=== PATIENT | female | born 1950 | race African-American/Black ===

== ENCOUNTER 2017-02-14 15:43 | Observation (INO) ==
--- NOTE | 2017-02-14 17:21 | CT Report ---
CT brain Indication: Syncope, fall Comparison: None available Technique: Axial CT imaging of the brain is performed without contrast with 3 mm increments. Findings: No evidence of hemorrhage, mass mass effect midline shift or acute infarct seen. The brain parenchyma attenuation and differentiation appears within normal limits. The ventricles and cisterns are normal in caliber. No cranial or skull base abnormality is identified. Impression: No evidence of acute injury demonstrated. This CT exam was performed using one or more the following dose reduction techniques: Automated exposure control, adjustment of the MA and/or KV according to patient size, or use of iterative reconstruction technique. PROCEDURE INTERPRETED AT [facility] DEPARTMENT OF RADIOLOGY Final Report Signed by: Dr. Artem Sorenson
--- NOTE | 2017-02-14 17:24 | CT Report ---
CT lumbar spine wo con Indication: Back pain, falling injury Comparison: None available Technique: Axial CT imaging of the lumbar spine is performed without contrast. Computer reformatting is viewed in the sagittal and coronal planes. Findings: No fracture is seen. There is spondylolisthesis at L4-5 less than 25% vertebral body width. Remaining alignment of the spine is within normal limits. Vertebral body heights are normal. There is loss of disc space and degenerative change of moderate severity L5-S1 moderate at L3-4 and L4-5. No other abnormality is demonstrated. Impression: No evidence of acute injury demonstrated This CT exam was performed using one or more the following dose reduction techniques: Automated exposure control, adjustment of the MA and/or KV according to patient size, or use of iterative reconstruction technique. PROCEDURE INTERPRETED AT [facility] DEPARTMENT OF RADIOLOGY Final Report Signed by: Dr. Artem Sorenson
--- NOTE | 2017-02-14 17:41 | XRay Report ---
XR chest 1V portable Indication: Syncope Comparison: One October 2010 Findings: The heart and mediastinum are normal in size and configuration. The pulmonary vascularity is normal in caliber. No lung infiltrates, effusions, pneumothorax or other abnormality is demonstrated. Impression: Normal chest x-ray PROCEDURE INTERPRETED AT [facility] DEPARTMENT OF RADIOLOGY Final Report Signed by: Dr. Artem Sorenson
--- NOTE | 2017-02-14 17:43 | XRay Report ---
XR hip 2V BI Indication: Hip pain Comparison: None available Findings: No evidence of fracture seen. The alignment of the joints appears normal. Mild bilateral hip degenerative change is present. No soft tissue abnormality is seen. Impression: Mild hip osteoarthrosis. PROCEDURE INTERPRETED AT [facility] DEPARTMENT OF RADIOLOGY Final Report Signed by: Dr. Artem Sorenson
--- NOTE | 2017-02-14 17:44 | XRay Report ---
XR knee 2V BI Indication: Pain, injury Comparison: None available Findings: No evidence of fracture seen. The alignment of the joints appears normal. Moderate to severe bilateral tricompartmental degenerative change is present. No soft tissue abnormality is seen. Impression: No evidence of acute injury demonstrated PROCEDURE INTERPRETED AT [facility] DEPARTMENT OF RADIOLOGY Final Report Signed by: Dr. Artem Sorenson
[2017-02-14 17:47] LABS: Basophils % 0.4 % (0.0-0.8); Eosinophils # 0.2 10*3/uL (0.0-0.87); Eosinophils % 4.1 % (0.00-10.9); Hematocrit 40.5 VOL% (35.7-47.0); Hemoglobin 13.6 GM/DL (12.0-16.0); Immature Granulocytes % 0.4 %; Immature Granulocytes Absolute 0.02 #; Lymphocytes % 36.5 % (21.3-54.2); Mean Corpuscular HGB Conc 33.6 GM/DL (32-36); Mean Corpuscular Hemoglobin 30 PG (27-34); Mean Corpuscular Volume 89.8 FL (87-102); Monocytes # 0.4 10*3/uL (0.11-0.8); Monocytes % 8.1 % (1.7-12.7); Neutrophils # 2.7 10*3/uL (1.4-7.4); Neutrophils % 50.5 % (38.7-73.9); Platelet Count 238 T/CUMM (130-400); Red Blood Count 4.51 MC/CUMM (3.8-5.5); Red Cell Distribution Width 15.7 % (9.3-17.3); White Blood Count 5.4 T/CUMM (4-12)
[2017-02-14 17:51] LABS: Apearance,Urine CLEAR (Clear); Bilirubin,Urine Negative (Negative); Blood, Urine Negative (Negative); Glucose,Urine (UA) Negative (Negative); Ketones,Urine Negative (Negative); Mucus,Urine Occasional /LPF (Occasional); Nitrite,Urine Negative (Negative); Protein,Urine Negative; RBC,Urine <1 /HPF (0-4); Squamous Epithelial Cell,Urine Occasional /HPF (0-10); Urine Color Yellow (Yellow); Urine Specific Gravity 1.026 (1.001-1.035); Urine Urobilinogen < 2.0 EU/DL (0.2-1.0); WBC,Urine 1 /HPF (0-6)
--- NOTE | 2017-02-14 17:56 | EKG Report ---
Stationary ECG Study [facility] ER Test Date: 02/14/2017 5:57:40 PM Pat Name: MELINDA FERNANDEZ Department: Room: Gender: F Taping Supervisor: : 1950 Requested by: Baldomero Shelley Order Number: [id number] Reading MD: CASI DOUGLAS Intervals [place] Rate: 74 P: 58 CA: 134 QRS: 24 QRSD: 108 T: -23 QT: 407 QTc: 434 Interpretive Statements SINUS RHYTHM LOW QRS VOLTAGE IN PRECORDIAL LEADS PROBABLE INFERIOR MYOCARDIAL INFARCTION, OF INDETERMINATE AGE POSSIBLE ANTEROLATERAL MYOCARDIAL INFARCTION, OLD Electronically Signed On 02-16-17 05:13:09 CDT by CASI DOUGLAS [email or web address]
[2017-02-14 17:58] LABS: INR 1.1; PT Patient Result 11.9 SECS; Partial Thromboplastin Time 25.2 SECS (0-40)
--- NOTE | 2017-02-14 18:24 | Emergency Department Note ---
Arrival - Arrival Chief Complaint: Fall Stated Complaint: unable to ambulate; legs buckled; was in walkin ED Nursing Triage Note: Patient was at home attempting to get out of her car from a trip to [employer]. She reports she leaned over her walker, her legs buckled under her, and she fell, and hit the back of her head. She denies a loss of consciousness; she is alert to person, place, time, and situation; but she reports difficulty walking for the past 2-3 weeks. Mode of Arrival: Stretcher Limitations: No Limitations Source: Patient, Old Records Reviewed, RN Notes Reviewed Time Seen by Provider: 02/14/17 16:37 - History of Present Illness HPI Narrative: The patient complains of lower extremity and a fall today while getting out of her car. She says her "legs just gave way." She hit her head but denies any loss of consciousness. She has a history of chronic low back pain and degenerative disease with radiculopathy. She has chronic weakness in her legs and is receiving physical therapy for this. She has had increased difficulty walking for the past 2-3 weeks and states she has been dragging her right leg for 2-3 months. She states her hips, knees and lower legs are hurting her but it is not clear whether there is any acute pain from the fall versus chronic pain. Home Medications: Home Medications Medication Instructions Recorded Confirmed Type Allopurinol 300 mg PO DAILY 02/14/17 02/14/17 History Aspirin EC Tab 81 mg PO DAILY 02/14/17 02/14/17 History Cholecalciferol (Vitamin D3) 2,000 unit PO DAILY 02/14/17 02/14/17 History [Vitamin D3] Gabapentin 300 mg PO DAILY 02/14/17 02/14/17 History Levothyroxine Tab [Synthroid Tab] 100 mcg PO QAM 02/14/17 02/14/17 History Lovastatin 40 mg PO BEDTIME 02/14/17 02/14/17 History Meloxicam 15 mg PO DAILY 02/14/17 02/14/17 History [place]-3S/Dha/Epa/Fish Oil [Fish 1 each PO DAILY 02/14/17 02/14/17 History Oil [place]-3 Softgel] Potassium 99 mg PO DAILY 02/14/17 02/14/17 History Ropinirole HCl 1 mg PO BEDTIME 02/14/17 02/14/17 History amLODIPine [Norvasc] 10 mg PO DAILY 02/14/17 02/14/17 History Review of System - Review of System 12 point system: reviewed and no additional remarkable complaints except as stated - Review of System Constitutional: Absent: fever Head/Ears/Nose/Throat: Absent: nasal drainage, sore throat Respiratory: Absent: cough Cardiovascular: Absent: chest pain Gastrointestinal: Absent: abdominal pain, nausea, vomiting Musculoskeletal: Present: arthralgia, back pain, lower back pain, leg pain. Absent: neck pain Neurological: Absent: headache Medical,Surgical,& Family Hx - Medical History Cardio: History of: Hypertension Endocrine: History of: Dyslipidemia Rheumatology: History of;: Gout, Rheumatoid Arthritis Musculoskeletal: History of: Back/Neck Problems, Degenerative Disk Disease, Herniated Disk - Surgical History Abdominal Surgeries: Surgical HX of: Colonoscopy - Family History Family History: Reports;: Family Diabetes - Social History Smoking Status: Former smoker Frequency of Alcohol Use: None Type of Drug Use: None Exam Physical Examination: GENERAL: Alert. No acute distress. HEENT: Normocephalic and atraumatic. No hematoma noted. There is no nasal drainage. No pharyngeal erythema or exudate. NECK: Normal inspection. Supple. No lymphadenopathy or meningismus. Full range of motion. LUNGS: No respiratory distress. Clear to auscultation bilaterally, no wheezes, rales or rhonchi. HEART: Regular rate and rhythm. ABDOMEN: Soft, nontender and nondistended with normoactive bowel sounds. Pelvis is stable. BACK: Normal inspection. Nontender. Kyphotic. SKIN: Color normal. Warm and dry. EXTREMITIES: Diffuse tenderness from the hips to the feet. Patient will not move her legs much but strength appears to be symmetric. Perhaps minimally weak. She cannot lift them off the bed very far but she says this is due to pain. No swelling, deformity or ecchymosis noted. Sensation intact. NEUROLOGICAL/PSYCHIATRIC: Alert and oriented -3 with normal mood and affect. Cranial nerves normal. No motor or sensory deficit. Vital Signs: Vital Signs Temperature 98.0 F 02/14/17 15:51 Pulse Rate 92 H 02/14/17 15:51 Respiratory Rate 20 02/14/17 15:51 Blood Pressure 124/71 02/14/17 15:51 O2 Sat by Pulse Oximetry 97 02/14/17 15:51 Course Course Narrative: An MRI of lumbar spine report from 2015 shows: Multilevel mild to moderate spinal stenosis related to posterior disc bulging and hypertrophic changes of the posterior elements at multiple levels as well as grade 1 spondylolisthesis at L4-L5. Multilevel neural foraminal narrowing related to posterior lateral disc bulge/protrusion and hypertrophic changes of the posterior elements. This includes severe neuroforaminal narrowing bilaterally at L3-L4 and L4-L5 and on the left at L5-S1. Please refer to the above discussion for additional information regarding the individual levels. - Reevaluation(s) Reevaluation #1: Patient has seen neurosurgery and [facility] and has declined to have surgery for her spinal problems. She has not seen orthopedics for her rather severe arthritis in her knees and hips. Her weakness sounds more like buckling due to arthritis than actual weakness from her spinal problems but regardless the patient continues to say that she cannot walk. She wants to be admitted because she lives by herself and is scared she will fall again. I think she is going need inpatient rehab versus long term placement. I have discussed the patient with the hospitalist service. They will see her and admit for observation and have social media marketing manager see her tomorrow. Time: 20:01 Results - Labs CBC & BMP: 02/14/17 17:39 02/14/17 17:39 Lab Results: I have reviewed the patients labs Labs: Laboratory Tests 02/14/17 02/14/17 02/14/17 17:39 17:39 17:39 INR 1.1 Calcium 10.2 H Total Creatine Kinase 271 H CK-MB (CK-2) 2.5 Troponin I < 0.015 Urine Leukocytes Negative Urine RBC <1 Urine WBC 1 - Impressions EKG shows a normal sinus rhythm at 74 with low QRS voltage in the precordial leads. There are Q waves inferiorly and anterolaterally. CT of the head shows no acute intracranial abnormality. CT of the lumbar spine shows: No fracture is seen. There is spondylolisthesis at L4-5 less than 25% vertebral body width. Remaining alignment of the spine is within normal limits. Vertebral body heights are normal. There is loss of disc space and degenerative change of moderate severity L5-S1 moderate at L3-4 and L4-5. No other abnormality is demonstrated. No evidence of acute fracture. Chest x-ray is normal Hip x-ray shows mild bilateral hip osteoarthrosis. Knee x-rays show mild to severe degenerative changes. No acute fractures. Disposition Clinical Impression: Weakness, Arthritis, Degenerative joint disease, Degenerative disc disease, Lower extremity pain Case discussed with: patient, patient's family Disposition: Still a Patient Condition: Stable Time of Disposition: 20:08
[2017-02-14 18:43] LABS: Blood Urea Nitrogen 28 MG/DL (7-18); Calcium 10.2 MG/DL (8.5-10.1); Glucose 120 MG/DL (74-106); Osmolality,Calculated 285.4 MOS/KG (273-304); Potassium 3.9 MMOL/L (3.5-5.1); Sodium 140 MMOL/L (136-145); Troponin I Only < 0.015 NG/ML (0.00-0.045)
--- NOTE | 2017-02-14 21:03 | Hospitalist History & Physical ---
Assessment and Plan (1) Intractable pain Status: Acute Assessment and plan: intractable pain in legs and lower extremity - decreased mobility - Pain control - Solumedrol - will monitor Current Visit: Yes (2) Acute renal failure Status: Acute Assessment and plan: Acute renal failure - IVF - Continue home medications - will monitor Current Visit: Yes (3) Weakness Status: Acute Assessment and plan: Weakness - TSH, B12, vitamin D - Echo ordered as well - will monitor Current Visit: Yes History of Present Illness Chief complaint: back and bilateral leg pain History of present illness: Ms. Narayanan is a 66 year old female with a history of gout and dyslipidemia that presented to the ER status post a fall. Patient reports that she has been having issues with her lower extremities and back for several months. She reports she went to the grocery store today and her legs buckled but she was able to catch herself. When patient got home from grocery store she reports her legs buckled again as she fell back and hit her head. Patient reports pain in her lower legs and back but denies any other areas of injury. Patient reports that she has been more weak and tired lately. When her legs give out, she becomes excited and nukdt short of breath. Patient reports she tries to stay active although she does use a walker. Patient reports some restlessness at night and constipation but denies any other symptoms including chest pain, dizziness, anorexia, headache. Patient reports that she walks leaning forward and uses walkers. Patient reports that she seen a back surgeon in [place] in the past but she opted not to do the surgery because it was high risk. ER workup was unremarkable including x-rays. ER could not get patient's pain control and patient not feel safe going home alone tonight. Patient admitted to hospitalist service for observation. Home Medications Medication Instructions Recorded Confirmed Type Allopurinol 300 mg PO DAILY 02/14/17 02/14/17 History Aspirin EC Tab 81 mg PO DAILY 02/14/17 02/14/17 History Cholecalciferol (Vitamin D3) 2,000 unit PO DAILY 02/14/17 02/14/17 History [Vitamin D3] Gabapentin 300 mg PO DAILY 02/14/17 02/14/17 History Levothyroxine Tab [Synthroid Tab] 100 mcg PO QAM 02/14/17 02/14/17 History Lovastatin 40 mg PO BEDTIME 02/14/17 02/14/17 History Meloxicam 15 mg PO DAILY 02/14/17 02/14/17 History [place]-3S/Dha/Epa/Fish Oil [Fish 1 each PO DAILY 02/14/17 02/14/17 History Oil [place]-3 Softgel] Potassium 99 mg PO DAILY 02/14/17 02/14/17 History Ropinirole HCl 1 mg PO BEDTIME 02/14/17 02/14/17 History amLODIPine [Norvasc] 10 mg PO DAILY 02/14/17 02/14/17 History Medical,Surgical,& Family Hx - Medical History Cardio: History of: Hypertension Endocrine: History of: Dyslipidemia Rheumatology: History of;: Gout, Rheumatoid Arthritis Musculoskeletal: History of: Back/Neck Problems, Degenerative Disk Disease, Herniated Disk - Surgical History Abdominal Surgeries: Surgical HX of: Colonoscopy - Family History Family History: Reports;: Family Diabetes - Social History Smoking Status: Former smoker Frequency of Alcohol Use: None Type of Drug Use: None Marital Status: Single Lives With:: Alone Functional capacity: uses cane/walker 12 point system: reviewed and no additional remarkable complaints except as stated Exam - Constitutional Vitals: Period Temp Pulse Resp BP Sys/Hale Pulse Ox Last 24 Hr 98.0 F-98.0 F 91-92 18-20 124-124/71-71 97 General appearance: no acute distress, morbidly obese - Head Head exam: Present: normal inspection - Eye Eye exam: Present: EOMI - Neck Neck exam: Present: normal inspection - Respiratory Respiratory exam: Present: clear to auscultation bilaterally. Absent: wheezes - Cardiovascular Cardiovascular exam: Present: regular rate and rhythm. Absent: systolic murmur - GI/Abdominal GI/Abdominal exam: Present: normal bowel sounds, soft. Absent: mass, tenderness - Extremities Exam Extremities exam: Present: edema (1+ pitting edema up to bilateral knees), other (tenderness in bilateral lower extremities) - Back Exam Back exam: Present: vertebral tenderness (sacral/lumbar tenderness) - Neurological Exam Neurological exam: Present: alert, oriented X3, other (weakness in bilateral lower extremity) - Psychiatric Psychiatric exam: Present: normal affect, normal mood - Skin Skin exam: Present: normal color, warm Results - Labs CBC & BMP: 02/14/17 17:39 02/14/17 17:39 - EKG EKG results: sinus rhythm - Diagnostic Findings Procedure: CT: report reviewed by me (head: negative; lumbar: no acute injury), X-ray: report reviewed by me (no acute changes)
[2017-02-14] MEDS ORDERED: ENOXAPARIN 40 MG/0.4 ML SYRINGE SUBCUT SCH (22:24)
[2017-02-14] MEDS ORDERED: traZODone 50 MG TABLET PO PRN (22:24)
[2017-02-14] MEDS ORDERED: ONDANSETRON 4 MG/2 ML VIAL IV PRN (22:24)
[2017-02-14] MEDS ORDERED: ACETAMINOPHEN 325 MG TABLET PO PRN (22:24)
[2017-02-14] MEDS ORDERED: rOPINIRole 1 MG TABLET PO SCH (22:24)
[2017-02-14] MEDS ORDERED: SODIUM CHLORIDE 0.9% 1,000 ML IV SCH (22:24)
[2017-02-14] MEDS ORDERED: LACTULOSE 20 GM/30 ML UDCUP PO PRN (22:24)
[2017-02-14] MEDS ORDERED: PROMETHAZINE 25 MG TABLET PO PRN (22:24)
[2017-02-14] MEDS ORDERED: LOVASTATIN 20 MG TABLET PO SCH (22:24)
[2017-02-14] MEDS ORDERED: BISACODYL 5 MG TABLET PO PRN (22:24)
[2017-02-14] MEDS: methylPREDNISolone SOD SUC 40 MG/1 ML VIAL IV SCH (23:11)
[2017-02-14] MEDS: MORPHINE 2 MG/1 ML SYRINGE IV PRN (23:37)
[2017-02-15] MEDS: MORPHINE 2 MG/1 ML SYRINGE IV PRN (05:13)
[2017-02-15] MEDS: methylPREDNISolone SOD SUC 40 MG/1 ML VIAL IV SCH ×2 (06:22→13:20)
[2017-02-15 06:30] LABS: Basophils % 0.2 % (0.0-0.8); Eosinophils % 0.2 % (0.00-10.9); Hematocrit 38.6 VOL% (35.7-47.0); Hemoglobin 12.9 GM/DL (12.0-16.0); Immature Granulocytes % 0.5 %; Immature Granulocytes Absolute 0.03 #; Lymphocytes % 16.2 % (21.3-54.2); Mean Corpuscular HGB Conc 33.4 GM/DL (32-36); Mean Corpuscular Hemoglobin 30 PG (27-34); Mean Corpuscular Volume 90.8 FL (87-102); Mean Platelet Volume 11.5 FL (9.6-12.0); Monocytes # 0.1 10*3/uL (0.11-0.8); Monocytes % 1.4 % (1.7-12.7); Neutrophils # 5.1 10*3/uL (1.4-7.4); Neutrophils % 81.5 % (38.7-73.9); Platelet Count 220 T/CUMM (130-400); Red Blood Count 4.25 MC/CUMM (3.8-5.5); Red Cell Distribution Width 15.5 % (9.3-17.3); White Blood Count 6.3 T/CUMM (4-12)
[2017-02-15 07:01] LABS: Albumin 3.5 G/DL (3.4-5.0); Bilirubin,Total 0.9 MG/DL (0.2-1.0); Calcium 9.1 MG/DL (8.5-10.1); Osmolality,Calculated 282.7 MOS/KG (273-304); Potassium 4.3 MMOL/L (3.5-5.1); Total Protein 7.1 G/DL (6.4-8.3)
[2017-02-15 07:08] LABS: 25 Hydroxy Vitamin D Total 29.8 NG/ML
[2017-02-15 07:09] LABS: Free T4 (Free Thyroxine) 1.23 NG/DL (0.76-1.46); Thyroid Stimulating Hormone 1.54 uIU/ml (0.358-3.74)
[2017-02-15 07:10] LABS: Lymphocytes 20 % (20-55); Platelet Estimate Adequate; Segmented Neutrophils 79 % (50-85); Total Cells Counted 100
[2017-02-15 07:11] LABS: Hypochromasia 1+
[2017-02-15] MEDS ORDERED: MELOXICAM 7.5 MG TABLET PO SCH (09:00)
[2017-02-15] MEDS ORDERED: CHOLECALCIFEROL 1,000 UNIT TABLET PO SCH (09:00)
[2017-02-15] MEDS ORDERED: LEVOTHYROXINE 100 MCG TABLET PO SCH (09:00)
[2017-02-15] MEDS ORDERED: GABAPENTIN 300 MG CAPSULE PO SCH (09:00)
[2017-02-15] MEDS ORDERED: POTASSIUM GLUCONATE 500 MG TABLET PO SCH (09:00)
[2017-02-15] MEDS ORDERED: ASPIRIN EC 81 MG TABLET PO SCH (09:00)
[2017-02-15] MEDS ORDERED: ALLOPURINOL 300 MG TABLET PO SCH (09:00)
[2017-02-15] MEDS ORDERED: amLODIPine 10 MG TABLET PO SCH (09:00)
[2017-02-15] MEDS ORDERED: OMEGA 3 ACID ETHYL ESTERS 1 GM CAPSULE PO SCH (09:00)
--- NOTE | 2017-02-15 11:54 | Discharge Summary ---
Hospital Course - Hospital Course Hospital Course: This is a 66-year-old lady with history of multilevel osteoarthritis of the lumbar spine. The patient has chronic lower extremity and low back pain which keeps her from walking with steady gait. The patient is able to mobilize using a walker. The patient had worse pain yesterday and had an episode of falling at home. The patient was admitted to hospital and observed. There were no new abnormalities found. The patient has declined neurosurgery by a neurosurgeon in [place]. We do not have neurosurgery services available here. The patient has primary care at [facility]. The patient is involved in a physical therapy program at [facility] as an outpatient. The patient has been observed for new diagnoses but none was found she is now ready for discharge home to continue outpatient follow-up. On the date of examination the chest is clear and abdomen soft. Heart has regular rate and rhythm. The patient is a former smoker and was given 4 minutes tobacco avoidance education. Total time of discharge visit and arrangements required 32 minutes. - Time spent with patient Time with patient DS: Greater than 30 minutes Diagnosis - Discharge Diagnosis (1) Degenerative disc disease Status: Chronic Discharge Plan - Discharge Data Disposition: Disch To Home/Self Care Condition at Discharge: Stable Discharge Diet: advance to your usual diet Activity: ambulate only with your walker - Discharge Medications Continue Levothyroxine Tab [Synthroid Tab] 100 mcg PO QAM Gabapentin 300 mg PO DAILY Aspirin EC Tab 81 mg PO DAILY amLODIPine [Norvasc] 10 mg PO DAILY Meloxicam 15 mg PO DAILY Ropinirole HCl 1 mg PO BEDTIME Potassium 99 mg PO DAILY Allopurinol 300 mg PO DAILY Lovastatin 40 mg PO BEDTIME Cholecalciferol (Vitamin D3) [Vitamin D3] 2,000 unit PO DAILY [place]-3S/Dha/Epa/Fish Oil [Fish Oil [place]-3 Softgel] 1 each PO DAILY - Follow Up or Referral - Forms/Instructions Exam - Constitutional Vitals: Period Temp Pulse Resp BP Sys/Hale Pulse Ox Last 24 Hr 97 F-98.0 F 72-92 16-20 124-180/62-77 94-98 Discharge Results Labs on day of discharge: Labs from last 24 hours 02/15/1717 17 05:17 05:17 05:17 WBC RBC Hgb Hct MCV MCH MCHC RDW Plt Count MPV Neut % (Auto) Lymph % (Auto) Cit[place] % (Auto) Eos % (Auto) Baso % (Auto) Neut # (Auto) Lymph # (Auto) [place] # (Auto) Eos # (Auto) Baso # (Auto) Total Counted Immature Gran % Nucleated RBC % Immature Gran # Segmented Neutrophils Lymphocytes Monocytes Nucleated RBCs # Platelet Estimate Hypochromasia Morphology Comment ESR Westergren INR PT Patient/Control Mix Circ Anticoag PTT Sodium Potassium Chloride Carbon Dioxide Anion Gap BUN Creatinine GFR Calculation BUN/Creatinine Ratio Glucose Calculated Osmolality Calcium Total Bilirubin AST ALT Alkaline Phosphatase Total Creatine Kinase CK-MB (CK-2) Troponin I C-Reactive Protein < 0.29 Total Protein Albumin Globulin Albumin/Globulin Ratio Vitamin B12 295 25-OH Vitamin D Total 29.8 Free T4 1.23 TSH 3rd Generation 1.540 Urine Color Urine Appearance Urine pH Ur Specific Ewing Urine Protein Urine Glucose (UA) Urine Ketones Urine Blood Urine Nitrate Urine Bilirubin Urine Urobilinogen Urine Leukocytes Urine RBC Urine WBC Ur Squamous Epith Cells Urine Mucus Ur Culture Indicated? 02/15/17 02/15/17 02/15/17 05:17 05:17 05:17 WBC 6.3 RBC 4.25 Hgb 12.9 Hct 38.6 MCV 90.8 MCH 30 MCHC 33.4 RDW 15.5 Plt Count 220 MPV 11.5 Neut % (Auto) 81.5 H Lymph % (Auto) 16.2 L [place] % (Auto) 1.4 L Eos % (Auto) 0.2 Baso % (Auto) 0.2 Neut # (Auto) 5.1 Lymph # (Auto) 1.0 L [place] # (Auto) 0.1 L Eos # (Auto) 0.0 Baso # (Auto) 0.0 Total Counted 100 Immature Gran % 0.5 Nucleated RBC % 0.0 Immature Gran # 0.03 Segmented Neutrophils 79 Lymphocytes 20 Monocytes 1 L Nucleated RBCs # 0.00 Platelet Estimate Adequate Hypochromasia 1+ Morphology Comment ESR Westergren 34 H INR PT Patient/Control Mix Circ Anticoag PTT Sodium 138 Potassium 4.3 Chloride 105 Carbon Dioxide 26 Anion Gap 11.3 BUN 27 H Creatinine 1.00 GFR Calculation 83 BUN/Creatinine Ratio 27.00 H Glucose 150 H Calculated Osmolality 282.7 Calcium 9.1 Total Bilirubin 0.90 AST 20 ALT 23 Alkaline Phosphatase 85 Total Creatine Kinase CK-MB (CK-2) Troponin I C-Reactive Protein Total Protein 7.1 Albumin 3.5 Globulin 3.6 H Albumin/Globulin Ratio 0.9 L Vitamin B12 25-OH Vitamin D Total Free T4 TSH 3rd Generation Urine Color Urine Appearance Urine pH Ur Specific Ewing Urine Protein Urine Glucose (UA) Urine Ketones Urine Blood Urine Nitrate Urine Bilirubin Urine Urobilinogen Urine Leukocytes Urine RBC Urine WBC Ur Squamous Epith Cells Urine Mucus Ur Culture Indicated? 02/14/17 02/14/17 02/14/17 17:39 17:39 17:39 WBC 5.4 RBC 4.51 Hgb 13.6 Hct 40.5 MCV 89.8 MCH 30 MCHC 33.6 RDW 15.7 Plt Count 238 MPV 10.0 Neut % (Auto) 50.5 Lymph % (Auto) 36.5 [place] % (Auto) 8.1 Eos % (Auto) 4.1 Baso % (Auto) 0.4 Neut # (Auto) 2.7 Lymph # (Auto) 2.0 [place] # (Auto) 0.4 Eos # (Auto) 0.2 Baso # (Auto) 0.0 Total Counted Immature Gran % 0.4 Nucleated RBC % 0.0 Immature Gran # 0.02 Segmented Neutrophils Lymphocytes Monocytes Nucleated RBCs # 0.00 Platelet Estimate Hypochromasia Morphology Comment ESR Westergren INR PT Patient/Control Mix Circ Anticoag PTT Sodium 140 Potassium 3.9 Chloride 104 Carbon Dioxide 28 Anion Gap 11.9 BUN 28 H Creatinine 1.10 H GFR Calculation 72 BUN/Creatinine Ratio 25.00 H Glucose 120 H Calculated Osmolality 285.4 Calcium 10.2 H Total Bilirubin AST ALT Alkaline Phosphatase Total Creatine Kinase 271 H CK-MB (CK-2) 2.5 Troponin I < 0.015 C-Reactive Protein Total Protein Albumin Globulin Albumin/Globulin Ratio Vitamin B12 25-OH Vitamin D Total Free T4 TSH 3rd Generation Urine Color Yellow Urine Appearance Clear Urine pH 5.0 Ur Specific [place] 1.026 Urine Protein Negative Urine Glucose (UA) Negative Urine Ketones Negative Urine Blood Negative Urine Nitrate Negative Urine Bilirubin Negative Urine Urobilinogen < 2.0 H Urine Leukocytes Negative Urine RBC <1 Urine WBC 1 Ur Squamous Epith Cells Occasional Urine Mucus Occasional Ur Culture Indicated? Not indicated 02/14/17 17:39 WBC RBC Hgb Hct MCV MCH MCHC RDW Plt Count MPV Neut % (Auto) Lymph % (Auto) [place] % (Auto) Eos % (Auto) Baso % (Auto) Neut # (Auto) Lymph # (Auto) [place] # (Auto) Eos # (Auto) Baso # (Auto) Total Counted Immature Gran % Nucleated RBC % Immature Gran # Segmented Neutrophils Lymphocytes Monocytes Nucleated RBCs # Platelet Estimate Hypochromasia Morphology Comment ESR Westergren INR 1.1 PT Patient/Control Mix 11.9 Circ Anticoag PTT 25.2 Sodium Potassium Chloride Carbon Dioxide Anion Gap BUN Creatinine GFR Calculation BUN/Creatinine Ratio Glucose Calculated Osmolality Calcium Total Bilirubin AST ALT Alkaline Phosphatase Total Creatine Kinase CK-MB (CK-2) Troponin I C-Reactive Protein Total Protein Albumin Globulin Albumin/Globulin Ratio Vitamin B12 25-OH Vitamin D Total Free T4 TSH 3rd Generation Urine Color Urine Appearance Urine pH Ur Specific [place]wing Urine Protein Urine Glucose (UA) Urine Ketones Urine Blood Urine Nitrate Urine Bilirubin Urine Urobilinogen Urine Leukocytes Urine RBC Urine WBC Ur Squamous Epith Cells Urine Mucus Ur Culture Indicated? DS: Provider Date of admission: 02/14/17 20:47 Primary care physician: JOSUE WESTBROOK NP Attending physician on admission: Alec Truong MD Consults: 02/14/17 22:35 Consult to Dietitian [CONS] Routine Reason for Dietitian: Dietary Consult Consult to Pastoral Services [CONS] Routine Comment: Pastoral Screen: Request Mushroom Farmer Visit Pastoral Screen Source of Request: Patient Discharging clinician: Marvin Segovia MD
[2017-02-15 14:17] VITALS: BP 168/102
--- NOTE | 2017-02-15 15:07 | ECHO Report ---
Tonja Narayanan Exam Date: 02/15/2017 09:20 Referring Physician: Technologist: Nina La Age: 66 Ht (in): 66 Wt (lb): 150 Gender: F Exam Location: [facility] Echo Indications: weakness, lower extremities edema, acute renal failure, bilateral leg pain BP: 121 / 56 HR: 96 Rhythm: Sinus Technical Quality: average IMPRESSIONS Overall ejection fraction is 50%. There is no regional wall motion abnormality. Diastolic parameters are most consistent with grade 1 diastolic dysfunction. Mildly thickened mitral valve with trace mitral regurgitation. MEASUREMENTS (Male / Female) Normal Values 2D ECHO LV Diastolic Diameter PLAX 5.0 cm 4.2 - 5.9 / 3.9 - 5.3 cm LV Systolic Diameter PLAX 3.4 cm LV Fractional Shortening PLAX 31.0 % IVS Diastolic Thickness 1.3 cm 0.6 - 1.0 / 0.6 - 0.9 cm LVPW Diastolic Thickness 1.1 cm 0.6 - 1.0 / 0.6 - 0.9 cm RV Internal Dim ED PLAX 1.6 cm Aortic Root Diameter 2.8 cm LA Systolic Diameter LX 3.7 cm 3.0 - 4.0 / 2.7 - 3.8 cm FINDINGS Left Ventricle Overall ejection fraction is 50%. There is no regional wall motion abnormality. Diastolic parameters are most consistent with grade 1 diastolic dysfunction. There is mild concentric left ventricular hypertrophy Right Ventricle Normal right ventricular size. Right Atrium Normal right atrial size. Left Atrium Normal left atrial size. Mitral Valve Mildly thickened mitral valve with trace mitral regurgitation. Aortic Valve The aortic valve is trileaflet, delicate and has normal motion. Tricuspid Valve Morphologically normal tricuspid valve. Pulmonic Valve Morphologically normal pulmonic valve. Pericardium No pericardial effusion. Aorta Normal size aortic root and proximal ascending aorta. Nan Segovia (Electronically Signed) Final Date: 15 February 2017 15:06
== END 2017-02-15 14:50 | disposition home or self-care (01) ==
LOC: EDUNIT# → N.EDINP 15:43 → N.ED 15:43 → SUATTDRO 20:47 → N.4E 21:08
PROVIDERS: ADMIT Family Medicine; ATTEND Internal Medicine

== ENCOUNTER 2020-05-28 15:38 | Inpatient (IN) ==
[2020-05-28] MEDS ORDERED: ENOXAPARIN 30 MG/0.3 ML SYRINGE SUBCUT STA ×2 (16:04→16:05)
[2020-05-28] MEDS ORDERED: ENOXAPARIN 30 MG/0.3 ML SYRINGE IV STA (16:05)
[2020-05-28] MEDS ORDERED: ENOXAPARIN 120 MG/0.8 ML SYRINGE SUBCUT ONE (16:06)
[2020-05-28 16:12] LABS: Basophils # 0.1 10*3/uL (0.0-0.2); Basophils % 0.8 % (0.0-0.8); Eosinophils % 0.2 % (0.00-10.9); Hematocrit 49.3 VOL% (35.7-47.0); Hemoglobin 14.5 GM/DL (12.0-16.0); Immature Granulocytes % 7.3 %; Immature Granulocytes Absolute 0.88 #; Lymphocytes # 4.8 10*3/uL (1.4-4.0); Lymphocytes % 39.6 % (21.3-54.2); Mean Corpuscular HGB Conc 29.4 GM/DL (32-36); Mean Corpuscular Volume 101.4 FL (87-102); Mean Platelet Volume 12.5 FL (9.6-12.0); Monocytes % 4.6 % (1.7-12.7); NRBC # 0.22 10*3/uL; Neutrophils % 47.5 % (38.7-73.9); Platelet Count 112 T/CUMM (130-400); Red Blood Count 4.86 MC/CUMM (3.8-5.5); Red Cell Distribution Width 15.6 % (9.3-17.3)
[2020-05-28] MEDS ORDERED: POTASSIUM CHLORIDE RIDER 10 MEQ in PREMIX 1 EACH IV PRN (16:14)
[2020-05-28] MEDS ORDERED: MAGNESIUM SULF RIDER 2 GM in PREMIX 1 EACH IV PRN (16:14)
[2020-05-28] MEDS ORDERED: ONDANSETRON 4 MG/2 ML VIAL IV PRN (16:14)
[2020-05-28] MEDS ORDERED: MAGNESIUM SULF RIDER 4 GM in PREMIX 1 EACH IV PRN (16:14)
[2020-05-28] MEDS ORDERED: VERAPAMIL 5 MG/2 ML VIAL ONE (16:16)
[2020-05-28] MEDS ORDERED: ASPIRIN 300 MG SUPP RECTAL STA (16:20)
[2020-05-28] MEDS ORDERED: ATROPINE 1 MG/10 ML SYRINGE IV STA (16:21)
[2020-05-28 16:35] LABS: Albumin 2.3 G/DL (3.4-5.0); Bilirubin,Total 0.6 MG/DL (0.2-1.0); Calcium 9.1 MG/DL (8.5-10.1); Osmolality,Calculated 293.5 MOS/KG (273-304); Total Protein 6.4 G/DL (6.4-8.3)
[2020-05-28 16:38] LABS: Band Neutrophils 5 % (0-10); Eosinophils 1 % (0-10); Lymphocytes 36 % (20-55); Metamyelocytes 2 %; Nucleated Red Blood Cells 5 (0-5); Segmented Neutrophils 49 % (50-85); Total Cells Counted 100
[2020-05-28 16:39] LABS: Anisocytosis Slight; Atypical Lymphocytes Few; Macrocytosis Slight
[2020-05-28] MEDS ORDERED: TIROFIBAN 0 MCG/0 ML PREMIX IV ONE (16:39)
[2020-05-28 16:40] LABS: Platelet Estimate Adequate
[2020-05-28] MEDS ORDERED: NITROGLYCERIN DRIP 50 MG/250 ML BOTTLE IV ONE (17:00)
[2020-05-28] MEDS ORDERED: SODIUM CHLORIDE 0.9% 1,000 ML IV SCH (17:00)
[2020-05-28 17:20] VITALS: BP 87/60
[2020-05-28 17:22] LABS: INR 1.9; PT Patient Result 19.9 SECS (9.8-11.9)
[2020-05-28] MEDS ORDERED: ROSUVASTATIN 20 MG TABLET PO SCH (21:00)
[2020-05-28] MEDS ORDERED: NOREPINEPHRINE 4 MG/4 ML VIAL IV ONE (21:11)
[2020-05-28] MEDS: NOREPINEPHRINE 8 MG in SODIUM CHLORIDE 0.9% 242 ML IV PRN (21:15)
[2020-05-28 21:32] LABS: CKMB % 2.3 %
[2020-05-28 21:36] LABS: Troponin I 3.16 NG/ML (0.00-0.045)
[2020-05-28 21:45] LABS: Ferritin 9347.1 ng/ml (8-252)
[2020-05-28] MEDS ORDERED: PHENYLEPHRINE DRIP 40 MG/250 ML PREMIX IV ONE (22:50)
[2020-05-28 23:34] LABS: ABG Base Excess -21.5 MMOL/L (-2.5-2.5); ABG HCO3 9.6 MMOL/L (20-26); ABG Oxygen Saturation 94.7 % (95-100); ABG PCO2 32.2 MM HG (35-48); ABG TCO2 8.4 MMOL/L (23-27)
[2020-05-28] MEDS: PHENYLEPHRINE DRIP 40 MG/250 ML PREMIX IV PRN (23:34)
[2020-05-28 23:35] LABS: ABG PH 7.056 (7.35-7.45)
[2020-05-29] MEDS ORDERED: SODIUM BICARBONATE 50 MEQ/50 ML VIAL IV ONE ×5 (00:02→23:51)
[2020-05-29] MEDS: NOREPINEPHRINE 8 MG in SODIUM CHLORIDE 0.9% 242 ML IV PRN ×3 (00:50→06:54)
[2020-05-29] MEDS: SODIUM BICARB INJ 150 MEQ in STERILE WATER INJ 850 ML IV SCH ×3 (00:50→18:51)
[2020-05-29] MEDS ORDERED: ENOXAPARIN 120 MG/0.8 ML SYRINGE SUBCUT SCH (04:00)
[2020-05-29 04:53] LABS: ABG HCO3 11.4 MMOL/L (20-26); ABG Oxygen Saturation 95.7 % (95-100); ABG PCO2 29.1 MM HG (35-48); ABG PO2 93.4 MM HG (80-95); ABG TCO2 12.2 MMOL/L (23-27)
[2020-05-29 04:57] LABS: Basophils # 0.2 10*3/uL (0.0-0.2); Hemoglobin 14.5 GM/DL (12.0-16.0); Immature Granulocytes % 7.2 %; Lymphocytes # 2.5 10*3/uL (1.4-4.0); Lymphocytes % 13.7 % (21.3-54.2); Mean Corpuscular HGB Conc 32.2 GM/DL (32-36); Mean Corpuscular Volume 94.9 FL (87-102); Mean Platelet Volume 12.3 FL (9.6-12.0); Monocytes % 1.7 % (1.7-12.7); NRBC # 0.36 10*3/uL; Neutrophils % 76.4 % (38.7-73.9); Platelet Count 132 T/CUMM (130-400); Red Blood Count 4.74 MC/CUMM (3.8-5.5); White Blood Count 18.1 T/CUMM (4-12)
[2020-05-29] MEDS: PHENYLEPHRINE DRIP 40 MG/250 ML PREMIX IV PRN ×2 (05:03→07:21)
[2020-05-29 05:19] LABS: Band Neutrophils 11 % (0-10); Lymphocytes 9 % (20-55); Nucleated Red Blood Cells 2 (0-5); Segmented Neutrophils 77 % (50-85); Total Cells Counted 100
[2020-05-29 05:20] LABS: Anisocytosis 1+; Burr Cells Few; Hypochromasia Slight
[2020-05-29 05:21] LABS: Platelet Estimate Adequate
[2020-05-29 05:33] LABS: Calcium 7.1 MG/DL (8.5-10.1); Osmolality,Calculated 294.5 MOS/KG (273-304); Risk Ratio 2.89; Thyroid Stimulating Hormone 0.617 uIU/ml (0.358-3.74); VLDL CHOLESTEROL 69.6 MG/DL
[2020-05-29 05:44] LABS: ABG PH 7.209 (7.35-7.45)
[2020-05-29] MEDS ORDERED: LEVOTHYROXINE 88 MCG TABLET PO SCH (06:30)
[2020-05-29] MEDS ORDERED: ASPIRIN EC 81 MG TABLET PO ONE (08:12)
[2020-05-29] MEDS ORDERED: ASPIRIN CHEW 81 MG TABLET PO SCH (09:00)
[2020-05-29] MEDS ORDERED: ASCORBIC ACID 500 MG TABLET PO SCH (09:00)
[2020-05-29] MEDS ORDERED: PANTOPRAZOLE 40 MG VIAL IV SCH (09:00)
[2020-05-29] MEDS ORDERED: ZINC GLUCONATE 50 MG TABLET PO SCH (09:00)
[2020-05-29] MEDS ORDERED: DEXAMETHASONE INJ 10 MG in SODIUM CHLORIDE 0.9% 50 ML IV SCH (09:00)
[2020-05-29] MEDS ORDERED: DEXAMETHASONE 10 MG/1 ML VIAL IV SCH (09:00)
[2020-05-29] MEDS: PHENYLEPHRINE INJ 160 MG in SODIUM CHLORIDE 0.9% 234 ML IV PRN ×3 (09:24→23:47)
[2020-05-29] MEDS: NOREPINEPHRINE 16 MG in SODIUM CHLORIDE 0.9% 234 ML IV PRN ×3 (12:04→23:47)
[2020-05-29] MEDS ORDERED: SODIUM CHLORIDE 0.9% 1,000 ML IV PRN (13:00)
[2020-05-29] MEDS ORDERED: SODIUM POLYSTYRENE SULFATE 15 GM/60 ML BOTTLE PO ONE (15:17)
[2020-05-29] MEDS ORDERED: SODIUM POLYSTYRENE SULFATE 15 GM/60 ML BOTTLE PO PRN (15:39)
[2020-05-29] MEDS ORDERED: HEPARIN DRIP 25,000 UNITS/500 ML PREMIX IV SCH (18:30)
[2020-05-29] MEDS ORDERED: PIPERACILLIN/TAZOBACTAM 3,375 MG in SODIUM CHLORIDE 0.9% 100 ML IV SCH (18:30)
[2020-05-29] MEDS ORDERED: SODIUM CHLORIDE 0.9% 1,000 ML IV ONE (23:03)
[2020-05-29 23:06] LABS: ABG Base Excess -16.8 MMOL/L (-2.5-2.5); ABG HCO3 12.1 MMOL/L (20-26); ABG Oxygen Saturation 90.9 % (95-100); ABG PCO2 31.8 MM HG (35-48); ABG PO2 76.9 MM HG (80-95); ABG TCO2 10.3 MMOL/L (23-27)
[2020-05-29 23:09] LABS: ABG PH 7.161 (7.35-7.45)
[2020-05-30 01:16] LABS: Alanine Aminotransferase 1688 U/L (13-56); Albumin 1.6 G/DL (3.4-5.0); Alkaline Phosphatase 217 U/L (45-117); Aspartate Amino Transferase 4014 U/L (0-37); Blood Urea Nitrogen 64 MG/DL (7-18); Estimated Glom Filtration Rate 16 ML/MIN; Osmolality,Calculated 286.8 MOS/KG (273-304); Total Protein 4.9 G/DL (6.4-8.3)
[2020-05-30 01:19] LABS: Calcium 5.6 MG/DL (8.5-10.1); Glucose 21 MG/DL (74-106)
[2020-05-30] MEDS ORDERED: ENOXAPARIN 120 MG/0.8 ML SYRINGE SUBCUT SCH (04:00)
== END 2020-05-30 01:15 | disposition expired | DRG 871 ==
LOC: N.ED 15:38 → N.EDINP 16:14 → N.CC 17:17
PROVIDERS: ADMIT Internal Medicine Cardiovascular Disease; ATTEND Internal Medicine Cardiovascular Disease
PROC: CLCCHCL (ICD-10-PCS; 2020-05-28 16:45)